=== PATIENT | male | born 1935 | race Caucasian/White ===

== ENCOUNTER 2024-02-01 11:39 | Emergency (ER) | payer MEDICARE ==
--- NOTE | 2024-02-01 12:44 | ED ---
General Adult HPI - General Chief complaint: Abdominal Pain Stated complaint: Abd pain Time Seen by Provider: 02/01/24 11:56 Source: patient, family, RN notes reviewed Mode of arrival: wheelchair Limitations: no limitations - History of Present Illness Initial comments: Patient is an 88-year-old male present to the emergency department with concerns with hernia pain. Patient has hernias that pop out, inguinal region. Patient states this is worse with standing up and sometimes driving. Patient states it improves with lying down. No discomfort at this time. No nausea or vomiting. No constipation or diarrhea. No fever. - Related Data Home Medications Medication Instructions Recorded Confirmed Losartan [Cozaar] 25 mg PO HS 02/01/24 02/01/24 Metoprolol Succinate (ER) [Toprol 50 mg PO DAILY 02/01/24 02/01/24 Xl] Pantoprazole Sodium [Protonix] 20 mg PO DAILY 02/01/24 02/01/24 Rivaroxaban [Xarelto] 20 mg PO HS 02/01/24 02/01/24 Simvastatin [Zocor] 20 mg PO HS 02/01/24 02/01/24 Allergies Allergy/AdvReac Type Severity Reaction Status Date / Time No Known Allergies Allergy Verified 02/01/24 13:28 Review of Systems ROS Statement: Those systems with pertinent positive or pertinent negative responses have been documented in the HPI. ROS Other: All systems not noted in ROS Statement are negative. Constitutional: Denies: fever Eyes: Denies: eye pain ENT: Denies: ear pain Respiratory: Denies: dyspnea Cardiovascular: Denies: chest pain Gastrointestinal: Reports: as per HPI Past Medical History Past Medical History: Atrial Fibrillation, Hyperlipidemia, Hypertension, Myocardial Infarction ([place]), Prostate Disorder Past Surgical History: Heart Catheterization With Stent, Orthopedic Surgery, Prostate Surgery Additional Past Surgical History / Comment(s): Open heart surgery Smoking Status: Former smoker Past Alcohol Use History: Occasional Past Drug Use History: None Reported General Exam Limitations: no limitations General appearance: alert, in no apparent distress Head exam: Present: normocephalic Eye exam: Present: normal appearance Neck exam: Present: normal inspection Respiratory exam: Present: normal lung sounds bilaterally Cardiovascular Exam: Present: regular rate, normal rhythm GI/Abdominal exam: Present: soft, hernia (Reducible left inguinal hernia without tenderness). Absent: distended, tenderness, guarding, rebound, rigid, pulsatile mass exam: Present: normal inspection. Absent: testicular tenderness, scrotal swelling Extremities exam: Present: normal inspection Neurological exam: Present: alert Psychiatric exam: Present: normal affect, normal mood Skin exam: Present: normal color Course Vital Signs 02/01/24 02/01/24 11:43 13:43 Temperature 97.5 F L Pulse Rate 78 Respiratory 18 16 Rate Blood Pressure 187/84 164/85 O2 Sat by Pulse 98 Oximetry Medical Decision Making - Medical Decision Making Was pt. sent in by a medical professional or institution (, PA, SUPERVISOR PAIRING [employer] INSPECTING, urgent care, hospital, or half-way...) When possible be specific @ -No Did you speak to anyone other than the patient for history (EMS, parent, family, police, friend...)? What history was obtained from this source @ -Patient's son is present helps provide history including patient's symptoms and duration and severity Did you review nursing and triage notes (agree or disagree)? Why? @ -I reviewed and agree with nursing and triage notes Were old charts reviewed (outside hosp., previous admission, EMS record, old EKG, old radiological studies, urgent care reports/EKG's, half-way records)? Report findings @ -No old charts were reviewed Differential Diagnosis (chest pain, altered mental status, abdominal pain women, abdominal pain men, vaginal bleeding, weakness, fever, dyspnea, syncope, headache, dizziness, GI bleed, back pain, seizure, CVA, palpatations, mental health, musculoskeletal)? @ -Differential Abdominal Pain Men: Appendicitis, cholecystitis, diverticulosis, ischemic bowel, pancreatitis, hepatitis, UTI, gastroenteritis, AAA, incarcerated hernia, bowel obstruction, constipation, inflammatory bowel, hepatitis, peptic ulcer disease, splenic infarction, perforated viscus, testicular torsion, this is not meant to be an all-inclusive list EKG interpreted by me (3pts min.). @ -As above X-rays interpreted by me (1pt min.). @ -None done CT interpreted by me (1pt min.). @ -CT scan abdomen pelvis interpreted by myself shows bilateral inguinal hernias U/S interpreted by me (1pt. min.). @ -None done What testing was considered but not performed or refused? (CT, X-rays, U/S, labs)? Why? @ -None What meds were considered but not given or refused? Why? @ -None Did you discuss the management of the patient with other professionals (professionals i.e. , PA, SUPERVIS[employer], lab, RT, psych nurse, social welfare research worker, olive knocker, teacher, president and chief commercial officer, case management assistant)? Give summary @ -No Was smoking cessation discussed for >3mins.? @ -No Was critical care preformed (if so, how long)? @ -No Were there social determinants of health that impacted care today? How? (Homelessness, low income, unemployed, alcoholism, drug addiction, transportation, low edu. Level, literacy, decrease access to med. care, half-way, rehab)? @ -No Was there de-escalation of care discussed even if they declined (Discuss DNR or withdrawal of care, Hospice)? DNR status @ -No What co-morbidities impacted this encounter? (DM, HTN, Smoking, COPD, CAD, Cancer, CVA, ARF, Chemo, Hep., AIDS, mental health diagnosis, sleep apnea, morbid obesity)? @ -None Was patient admitted / discharged? Hospital course, mention meds given and route, prescriptions, significant lab abnormalities, going to OR and other pert inent info. @ -Patient presents with concerns with inguinal hernias. No discomfort at this time. Hernia is soft and reducible. CT scan confirms hernia, no other abnormality. Patient to be discharged with surgical follow-up. Patient and family updated. Undiagnosed new problem with uncertain prognosis? @ -No Drug Therapy requiring intensive monitoring for toxicity (Heparin, Nitro, Insulin, Cardizem)? @ -No Were any procedures done? @ -No Diagnosis/symptom? @ -Inguinal hernia, bilateral Acute, or Chronic, or Acute on Chronic? @ -Acute Uncomplicated (without systemic symptoms) or Complicated (systemic symptoms)? @ -Default Side effects of treatment? @ -No Exacerbation, Progression, or Severe Exacerbation? @ -No Poses a threat to life or bodily function? How? (Chest pain, [place], [place], pneumonia, PE, COPD, DKA, ARF, appy, cholecystitis, CVA, Diverticulitis, Homicidal, Suicidal, threat to staff... and all critical care pts) @ -Threat to intestinal function Disposition Clinical Impression: Bilateral inguinal hernia Disposition: HOME SELF-CARE Condition: Stable Instructions (If sedation given, give patient instructions): Inguinal Hernia (ED) Additional Instructions: Please do follow-up with primary care physician and surgeon in the next couple of days for recheck, numbers provided. Return for fever, vomiting, increased swelling, unable to reduce hernia, color change, increased pain, worsening symptoms or any other concerns. Is patient prescribed a controlled substance at d/c from ED?: No Referrals: Mark Smith DO [Doctor of Osteopathic Medicine] - 1-2 days Oleksandr Armas MD [Medical Doctor] - 1-2 days Dewayne Pardo MD [STAFF PHYSICIAN] - 1-2 days Forms: Area PCPs Time of Disposition: 14:00
--- NOTE | 2024-02-01 13:12 | CT ---
EXAMINATION TYPE: CT abdomen pelvis wo con DATE OF EXAM: 02/01/2024 COMPARISON: None CLINICAL INDICATION: Male, 88 years old with history of hernia pain; PHH, HERNIA TECHNIQUE: CT scan of the abdomen and pelvis is performed without oral or IV contrast. CT DLP: 410.[address] CTDI: mGy Automated exposure control for dose reduction was used. FINDINGS: Within the limitations of a non-contrast study, the following observations are made. The lungs are clear. Gallbladder is normal and there is no gallstone, wall thickening, pericholecystic fluid or distention . There is no biliary ductal dilatation. There is no organomegaly of the liver, pancreas, spleen or adrenal glands. There are a few scattered low density lesions within the liver consistent with simple hepatic cysts. There are 2 right renal vascular calcifications but there is no hydronephrosis. There is a parapelvic cyst in left kidney and there are exophytic simple cortical cyst in the posterior aspects of both th e right and left kidney.. The caliber of the abdominal aorta is normal and there is no retroperitoneal adenopathy or hemorrhage . The bowel loops are normal in caliber is no evidence of obstruction. No inflammatory changes are iden tified in the mesentery and there is no free intraperitoneal air or fluid. There are bilateral inguin al hernias, left greater than right, containing bowel loops but there is no evidence of obstruction o r ischemia There is no pelvic mass, free fluid, abscess or adenopathy. There is mild diverticulosis of the colon without CT evidence of diverticulitis. The osseous structures and soft tissues are unremarkable. IMPRESSION: Bilateral inguinal hernias containing nonobstructed nonstrangulated loops of bowel, left greater than right. [facility], , 02/01/2024 1:09 PM
[2024-02-01 14:07] VITALS: BP 164/80; PULSE 65; RESP 18; TEMP 97.9
== END 2024-02-01 14:14 | disposition home or self-care (01) ==
LOC: EC 11:39
DX: K40.20 Bilateral inguinal hernia, without obstruction or gangrene, not specified as recurrent (principal); Z87.891 Personal history of nicotine dependence
CPT/HCPCS: 74176; 99284

== ENCOUNTER 2024-08-17 09:17 | Day surgery (SDC) | payer MEDICARE ==
[2024-08-13 13:11] VITALS: BMI 20.7
[2024-08-17] MEDS: IV FLUID CONTINUATION 1,000 ML IV ONE ×2 (09:45→13:51)
[2024-08-17] MEDS: LACTATED RINGERS 1,000 ML IV SCH (10:42)
[2024-08-17] MEDS: HEPARIN SODIUM,PORCINE 5,000 UNIT/ML 1 ML VIAL SQ PRN (10:42)
[2024-08-17] MEDS: ACETAMINOPHEN TAB 500 MG TAB PO PRN (10:43)
--- NOTE | 2024-08-17 10:55 | P.GSHP ---
History of Present Illness H&P Date: 08/17/24 Chief Complaint: Left inguinal hernia 88-year-old male seen in the office previously for bilateral inguinal hernia. Left-sided symptomatic and enlarging. More soreness there. No symptoms on the right. Patient was using a truss on the left-hand side for several months but recently even with the truss in place he was having soreness. Spoke with the patient and the daughter by phone recently. They are requesting to proceed with surgery. 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 He was reportedly cleared by cardiology. Patient with history of previous prostate surgery. Past Medical History Past Medical History: Atrial Fibrillation, Hyperlipidemia, Hypertension, Myocardial Infarction ([place]), Prostate Disorder Additional Past Medical History / Comment(s): HX OF BPH Last Myocardial Infarction Date:: UNK History of Any Multi-Drug Resistant Organisms: None Reported Past Surgical History: Coronary Bypass/CABG, Heart Catheterization With Stent, Orthopedic Surgery, Prostate Surgery Additional Past Surgical History / Comment(s): 4 VESSEL CABG 2012, TURP Past Anesthesia/Blood Transfusion Reactions: No Reported Reaction Date of Last Stent Placement:: UNK Past Psychological History: No Psychological Hx Reported Smoking Status: Former smoker Past Alcohol Use History: Rare Past Drug Use History: None Reported - Past Family History Mother Family Medical History: No Reported History Medications and Allergies Home Medications Medication Instructions Recorded Confirmed Type Metoprolol Succinate (ER) [Toprol 50 mg PO DAILY 02/01/24 08/13/24 History Xl] Pantoprazole Sodium [Protonix] 20 mg PO DAILY 02/01/24 08/13/24 History Rivaroxaban [Xarelto] 20 mg PO PC-SUPPER 02/01/24 08/13/24 History Simvastatin [Zocor] 40 mg PO HS 02/01/24 08/13/24 History Losartan/Hydrochlorothiazide 1 tab PO DAILY 08/13/24 08/13/24 History [Losartan-Hctz 100-12.5 mg Tab] Allergies Allergy/AdvReac Type Severity Reaction Status Date / Time No Known Allergies Allergy Verified 08/17/24 09:48 Surgical - Exam Vital Signs Temp Pulse Resp BP Pulse Ox 98 F 79 16 133/85 96 08/17/24 09:53 08/17/24 09:53 08/17/24 09:53 08/17/24 09:53 06/23/25 09:53 Physical exam: General: Well-developed, well-nourished HEENT: Normocephalic, sclerae nonicteric Abdomen: Nontender, nondistended, small to medium sized right inguinal hernia, moderate sized reducible left inguinal hernia mildly tender there Extremities: No edema Neuro: Alert and oriented Assessment and Plan (1) Left inguinal hernia Narrative/Plan: Will proceed with open repair left inguinal hernia with mesh. Risks of bleeding, infection, recurrence, chronic pain, bladder and bowel injury, numbness, scarring, and anesthesia related complications were discussed. The correlation between hernia recurrence, obesity and smoking were reviewed in detail. The patient understands and wishes to proceed. Current Visit: Yes Status: Acute Code(s): K40.90 - UNIL INGUINAL HERNIA, W/O OBST OR GANGR, NOT SPCF RECUR SNOMED Code(s): 891014816
[2024-08-17] MEDS: MIDAZOLAM 2 MG/2 ML VIAL IV ONE (11:01)
[2024-08-17] MEDS ORDERED: ePHEDrine 50 MG/ML 1 ML VIAL ONE (11:19)
[2024-08-17] MEDS ORDERED: DEXAMETHASONE SOD PHOSPHATE 4 MG/ML 1 ML VIAL ONE (11:19)
[2024-08-17] MEDS ORDERED: fentaNYL (PF) 50 MCG/ML 2 ML AMP ONE (11:19)
[2024-08-17] MEDS ORDERED: LIDOCAINE 1% INJ 10MG/ML (20 ML MDV) ONE (11:19)
[2024-08-17] MEDS ORDERED: ROPIVACAINE 5 MG/ML 30 ML VIAL ONE (11:19)
[2024-08-17] MEDS: ceFAZolin 2 GM in DEXTROSE 5% IN WATER 50 ML IVPB PRN (11:19)
[2024-08-17] MEDS ORDERED: SODIUM CHLORIDE 0.9% (PF) 10 ML VIAL ONE (11:19)
[2024-08-17] MEDS ORDERED: PROPOFOL 10 MG/ML 20 ML VIAL IV ONE (11:19)
[2024-08-17] MEDS: BUPIVACAINE (PF) 0.25% 30 ML VIAL SQ ONE ×2 (11:40→12:15)
[2024-08-17 12:32] VITALS: TEMP 97
[2024-08-17] MEDS ORDERED: traMADol 50 MG TAB PO STA (12:32)
--- NOTE | 2024-08-17 12:37 | P.OP ---
Date of Procedure: 08/17/24 Procedure(s) Performed: PREOPERATIVE DIAGNOSIS: Left inguinal hernia POSTOPERATIVE DIAGNOSIS: Same PROCEDURE: Open repair left inguinal hernia with mesh SURGEON: Dr. Armas ANESTHESIA: General EBL: 5 cc OPERATIVE PROCEDURE DETAILS: Patient was placed in the operating table in the supine position and placed under general anesthesia. An oblique incision was made in the left groin. Dissection down through the subcutaneous tissues took place using electrocautery. The external oblique fascia was incised using a scalpel. This opening was lengthened using the Metzenbaum scissors. The spermatic cord was encircled with a Andrea drain. The spermatic cord structures were identified and preserved. Careful dissection revealed an indirect hernia sac. The patient's hernia sac was quite thin. There was a portion of the sigmoid colon that was adherent to the wall of the hernia sac that was able to be lysed using both sharp and electrocautery. The colon was reduced back into the peritoneal cavity in this manner. The sac was then ligated using 2 separate 0 silk stick tie sutures. A 3" x 6" Prolene mesh was cut to fit on the exposed fascia. This was sutured to the pubic tubercle the folding edge of the inguinal ligament and the conjoined tendon using interrupted 0 Vicryl sutures. A slit was created in the mesh and the mesh was wrapped around the spermatic cord and sutured back to itself. The external oblique was then reapproximated using a running 2-0 Vicryl suture. The subcutaneous tissues were reapproximated using a 3-0 Vicryl sutures. The skin was closed using 4-0 Monocryl sutures. Skin glue and sterile dressings were then applied. TYPE OF MESH USED: Prolene flat LOCATION OF MESH: [place] FIXATION: 0 Vicryl PREOPERATIVE DISCUSSION ON SMOKING CESSASTION: Yes PREOPERATIVE DISCUSSION ON MORBID OBESITY: Yes PREOPERATIVE DISCUSSION ON APPROPRIATE USE OF NARCOTIC USE: Yes PREOPERATIVE EDUCATION: Multi Modal, Smoking Cessation and Weight Loss with BMI over 35. DISPOSITION: Stable to recovery room
[2024-08-17] MEDS: HYDROmorphone 0.5 MG/0.5 ML SYRINGE IVP PRN (13:10)
[2024-08-17] MEDS: TAMSULOSIN 0.4 MG CAP.ER.24H PO STA (15:37)
[2024-08-17 15:44] VITALS: RESP 16
[2024-08-17] MEDS ORDERED: IBUPROFEN 600 MG TAB PO SCH (16:00)
[2024-08-17 16:23] VITALS: BP 140/72; PULSE 69
[2024-08-17] MEDS ORDERED: ACETAMINOPHEN TAB 325 MG TAB PO SCH (19:00)
--- NOTE | 2024-08-18 13:36 | P.ANPRN ---
Procedure Note - Anesthesia - Nerve Block Performed Bilateral Rectus Abdominis Single Time Out Performed: Yes Date of Procedure: 08/17/24 Procedure Start Time: 11:01 Procedure Stop Time: 11:05 Location of Patient: PreOp Indication: Acute Post-Operative Pain, Requested by Surgeon Sedation Type: Sedate with meaningful contact maintained Preparation: Sterile Prep Position: Supine Needle Types: Pajunk Needle Gauge: 21 Ultrasound used to visualize needle placement: Yes Ultrasound used to observe medication spread: Yes Blood Aspirated: No Pain Paresthesia on Injection Noted: No Resistance on Injection: Normal Image Stored and Saved: Yes Events: Uneventful and Well Tolerated (Ropivacaine 0.5% 20 cc plus dexamethasone 4 mg)
== END 2024-08-17 17:12 | disposition home or self-care (01) ==
LOC: OR 09:17
PROVIDERS: ATTEND Surgery
DX: K40.20 Bilateral inguinal hernia, without obstruction or gangrene, not specified as recurrent (principal); G89.18 Other acute postprocedural pain; I48.91 Unspecified atrial fibrillation; I10 Essential (primary) hypertension; I25.10 Atherosclerotic heart disease of native coronary artery without angina pectoris; I25.2 Old myocardial infarction; Z95.1 Presence of aortocoronary bypass graft; Z95.5 Presence of coronary angioplasty implant and graft; E78.5 Hyperlipidemia, unspecified; N40.0 Benign prostatic hyperplasia without lower urinary tract symptoms; K21.9 Gastro-esophageal reflux disease without esophagitis; E66.01 Morbid (severe) obesity due to excess calories; Z68.35 Body mass index [BMI] 35.0-35.9, adult; Z79.01 Long term (current) use of anticoagulants; Z79.899 Other long term (current) drug therapy; Z87.891 Personal history of nicotine dependence
CPT/HCPCS: 49505; 64488; 88302; C1781; J2250; J1644; J1100; J0690; J2003; J3010; J2795; J2704; J1171; J0665; 64466